=== PATIENT | male | born 1990 | race Caucasian/White ===

== ENCOUNTER 2016-05-12 20:32 | Emergency (ER) | payer OTHER | END 2016-05-12 20:50 | disposition home or self-care (01) | LOC: SED 20:32 | DX: F11.129 Opioid abuse with intoxication, unspecified (principal); I48.91 Unspecified atrial fibrillation; F17.200 Nicotine dependence, unspecified, uncomplicated | CPT/HCPCS: 96374; 99283 ==

== ENCOUNTER 2016-05-13 02:04 | Emergency (ER) | payer OTHER | END 2016-05-13 02:12 | disposition home or self-care (01) | LOC: CED 02:04 | DX: Z53.21 Procedure and treatment not carried out due to patient leaving prior to being seen by health care provider (principal) ==